=== PATIENT | male | born 1950 | race Caucasian/White ===

== ENCOUNTER 2018-06-28 22:46 | Emergency (ER) | payer BC ==
[~2018-06-28] VITALS: Ht 175.3 cm; Wt 81.7 kg
[~2018-06-28 22:46] MED LIST: AZELASTINE137 MCG/0. NAS; BIAXIN500 MG PO; CALCIO DEL MAR500 MG PO; CEFTIN500 MG PO; CHROMIUM PICO200 MCG PO; FISH OIL 1,0001 EAC1 PO; FLUTICASONE PRO16 GM NS; MAGNESIUM100 MG PO; NORCO 7.5-3251 EACH PO; PREDNISONE10 MG PO; SELENIUM100 MCG PO; SYNTHROID125 MCG PO; VICODIN 5-5001 EACH PO
== END 2018-06-28 23:55 | disposition home or self-care (01) ==
LOC: ED 22:46
PROC: 0HQGXZZ Repair Left Hand Skin, External Approach (ICD-10-PCS; principal; 2018-06-28)
DX: S61.211A Laceration without foreign body of left index finger without damage to nail, initial encounter (principal); Z87.891 Personal history of nicotine dependence; Z79.899 Other long term (current) drug therapy; Z23 Encounter for immunization; W26.0XXA Contact with knife, initial encounter
CPT/HCPCS: 12001; 90471; 90715; 99282